=== PATIENT | female | born 1940 | race Caucasian/White ===

== ENCOUNTER → 2020-08-11 08:34 | Outpatient (CLI) | payer MEDICARE, SELFPAY ==
--- NOTE | ~2020-08-11 | US_ITS ---
US abdomen complete EXAMINATION: US Abdomen Complete INDICATION: Abdominal distention PROCEDURE: Realtime High Resolution abdomen ultrasound. COMPARISON: No prior studies for comparison FINDINGS: Gallbladder within normal limits. No gallstones, pericholecystic fluid, gallbladder wall t hickening or biliary dilatation. Common bile duct measures 5 mm. Liver echotexture within normal limits without focal mass. Pancreas within normal limits. Pancreati c tail is obscured by bowel gas. There are calcified granulomas of the spleen. There are right renal cysts measuring up to 1.9 cm. No solid masses or hydronephrosis. Right kidney measures 10.6 cm. Left kidney measures 8.2 cm. Visualized aspects of the aorta and IVC are within normal limits. Portal vein is patent. No sonograph ic Nelson's sign indicated by the technologist. IMPRESSION: 1: Unremarkable abdominal ultrasound. Reviewed, dictated and finalized at location A. AT CONTROL
== END ==
PROVIDERS: Visit Provider Internal Medicine Gastroenterology
DX: R14.0 Abdominal distension (gaseous) (principal); N28.1 Cyst of kidney, acquired
CPT/HCPCS: 76700

== ENCOUNTER 2020-08-18 00:54 | Outpatient (CLI) | payer MEDICARE, SELFPAY ==
[2020-08-19 17:16] LABS: SARS-CoV-2 RNA PCR Negative
== END 2020-08-18 00:55 | disposition home or self-care (01) ==
LOC: ANHCOVIDDT 00:54
PROVIDERS: Visit Provider Internal Medicine Gastroenterology
DX: Z01.812 Encounter for preprocedural laboratory examination (principal); Z20.822 Contact with and (suspected) exposure to COVID-19
CPT/HCPCS: C9803; U0003; U0005

== ENCOUNTER 2020-08-21 01:13 | Day surgery (SDC) | payer MEDICARE, SELFPAY ==
[2020-08-08 15:34] VITALS: BMI 23.1
[2020-08-21 08:00] VITALS: BP 151/83; PULSE 56; RESP 16; TEMP 35.8; O2SAT 99; BMI 21.3
--- NOTE | 2020-08-21 08:03 | WPDANESEPPF ---
Anes - Initial Pre Proc Eval Procedure: Operation Date: 08/21/20 09:00 Proposed Procedures p Colonoscopy - Keyon Scott MD Date/Time: 08/21/20 08:03 Surgeon: Keyon Scott MD Pre Op Diagnosis: Wt.Loss,Change in Bowel Habits, Abdominal Distenti Patient Data Age: 80 Gender: F Height: 1.68 m Weight: 60 kg Last Vital Signs Temp 35.8 C L 08/21/20 08:00 Pulse 56 L 08/21/20 08:00 Resp 16 08/21/20 08:00 BP 151/83 H 08/21/20 08:00 Pulse Ox 99 08/21/20 08:00 Allergies Allergy/AdvReac Type Severity Reaction Status Date / Time Penicillins Allergy Intermediate Rash Verified 08/21/20 07:56 Home Medications Medication Instructions Recorded Confirmed Type alendronate 70 mg tablet 70 mg PO WEEKLY 03/26/20 08/08/20 History apixaban 5 mg tablet 5 mg PO BID 03/26/20 08/21/20 History carvedilol 6.25 mg tablet 6.25 mg PO Q12H 03/26/20 08/21/20 History losartan 25 mg tablet 25 mg PO QPM 03/26/20 08/21/20 History pravastatin 40 mg tablet 40 mg PO HS 03/26/20 08/21/20 History trazodone 50 mg tablet 75 mg PO HS tablet 07/12/20 08/21/20 History famotidine [Pepcid] 20 mg PO QACLUNCH 08/08/20 08/21/20 History prednisone 5 mg PO Q48H 08/08/20 08/21/20 History Patient hx anesthesia problems: none Family hx anesthesia problems: none PMFSH Past Medical History Medical History (Updated 08/21/20 @ 08:05 by Reilly Huynh MD) Anxiety Atrial fibrillation Sinclair esophagus Bloating Bowel habit changes Colon cancer Colon cancer screening Depression GERD (gastroesophageal reflux disease) Hemorrhoid Hypercholesterolemia Hypertension Osteoarthritis Spinal stenosis Weight loss Family History Family History Grandparent Diabetes mellitus Father Patient's father is Sibling Family history of malignant neoplasm Mother Family history of Alzheimer's disease Social History Social History (Reviewed 04/05/20 @ 09:11 by June Smith Smoking status: Never smoker Substance use: never Substance use type: does not use Living arrangements: alone Spiritual care concerns: No Anes - Eval Final PreProcedure Day of Procedure 08/21/20 08:03 Patient weight: normal Heart: regular rate and rhythm Lungs: clear to auscultation and normal air movement Airway: Mallampati scale class II Neurological: alert and oriented Last oral intake: >/= 8 hours ASA classification: III Emergent: no Anesthetic plan: proceed Anesthesia type and monitoring: general GIVS Informed Consent: The patient's anesthetic plan and its attendant risks and benefits were discussed with the patient/family/POA. Questions were solicited and answers provided to the satisfaction of the patient/family/POA.
[2020-08-21] MEDS: LACTATED RINGERS 1,000 ML 150 ML IV CONT (08:23)
--- NOTE | 2020-08-21 09:15 | PM.HPGS ---
History of Present Illness History of Present Illness Consent: Risks, benefits, and alternatives have been discussed and questions answered. Patient agrees to proceed with procedure. Chief complaint: Wt.Loss,Change in Bowel Habits, Abdominal Distenti Narrative: Cris Conde is a 80 year old female with change bowel habit and bloating, last colonoscopy 4 years ago. Review of Systems Constitutional: Constitutional: Denies headache(s) and Denies weakness Eyes: Eyes: Denies blurry vision ENT: Reports Normal hearing present, Denies headache(s) and Denies neck pain Cardiovascular: Cardiovascular: Denies chest pain and Denies dyspnea Respiratory: Respiratory: Denies dyspnea Gastrointestinal: Gastrointestinal: Reports no additional gastrointestinal complaints Genitourinary: Genitourinary: Denies dysuria Musculoskeletal: Musculoskeletal: Denies neck pain Integumentary/Breasts: Skin/Breast: Denies dry skin Neurologic: Reports Normal hearing present, Denies headache(s) and Denies weakness Psychiatric: Psychiatric: Denies anxiety Endocrine: Endocrine: Denies change in body appearance Hematologic/Lymphatic: Hematologic/Lymphatic: Denies easy bleeding Allergic/Immunologic: Allergic/Immunologic: Denies urticaria PMFSH Past Medical History Medical History (Updated 08/21/20 @ 08:05 by Reilly Huynh MD) Anxiety Atrial fibrillation Sinclair esophagus Bloating Bowel habit changes Colon cancer Colon cancer screening Depression GERD (gastroesophageal reflux disease) Hemorrhoid Hypercholesterolemia Hypertension Osteoarthritis Spinal stenosis Weight loss Family History Family History Grandparent Diabetes mellitus Father Patient's father is Sibling Family history of malignant neoplasm Mother Family history of Alzheimer's disease Social History Social History Smoking status: Never smoker Substance use: never Substance use type: does not use Living arrangements: alone Spiritual care concerns: No Meds Home Medications and Allergies Home Medications Medication Instructions Recorded Confirmed Type alendronate 70 mg tablet 70 mg PO WEEKLY 03/26/20 08/08/20 History apixaban 5 mg tablet 5 mg PO BID 03/26/20 08/21/20 History carvedilol 6.25 mg tablet 6.25 mg PO Q12H 03/26/20 08/21/20 History losartan 25 mg tablet 25 mg PO QPM 03/26/20 08/21/20 History pravastatin 40 mg tablet 40 mg PO HS 03/26/20 08/21/20 History trazodone 50 mg tablet 75 mg PO HS tablet 07/12/20 08/21/20 History famotidine [Pepcid] 20 mg PO QACLUNCH 08/08/20 08/21/20 History prednisone 5 mg PO Q48H 08/08/20 08/21/20 History Allergies Allergy/AdvReac Type Severity Reaction Status Date / Time Penicillins Allergy Intermediate Rash Verified 08/21/20 07:56 Vital Signs Vital Signs - 24 hr 08/21/20 08:00 Temperature 96.5 F L Pulse Rate 56 L Respiratory Rate 16 Blood Pressure 151/83 H Pulse Oximetry 99 Exam Const: General: comfortable and no acute distress HENMT: General nose exam: Normal nares present Eyes: General: appearance normal, both eyes and all related structures Neck: Neck: no JVD Resp: Auscultation: clear to auscultation bilaterally Cardio: Rate: regular rate Rhythm: regular rhythm GI: Inspection: non-distended GI Palp: Yes Soft to palpation Skin: General skin exam: normal color Neuro: General: gait normal Speech: normal speech Extrem: General: normal to inspection Psych: Mental Status: mental status grossly normal Assessment and Plan Assessment and plan (1) Bowel habit changes: Code(s): R19.4 - Change in bowel habit Status: Acute (2) Colon cancer screening: Code(s): Z12.11 - Encounter for screening for malignant neoplasm of colon Status: Acute
[2020-08-21 09:36] VITALS: BP 91/42; PULSE 74; RESP 26; O2SAT 98
[2020-08-21 09:46] VITALS: BP 107/53; PULSE 80; RESP 25; O2SAT 99
[2020-08-21 09:56] VITALS: BP 130/61; PULSE 77; RESP 20; O2SAT 99
== END 2020-08-21 10:27 | disposition home or self-care (01) ==
PROVIDERS: PCP Nurse Practitioner Adult Health; Visit Provider Internal Medicine Gastroenterology
PROC: 0DJD8ZZ Inspection of Lower Intestinal Tract, Via Natural or Artificial Opening Endoscopic (ICD-10-PCS; CPT 45378; principal; 2020-08-21 09:00)
DX: R19.4 Change in bowel habit (principal); R14.0 Abdominal distension (gaseous); K57.30 Diverticulosis of large intestine without perforation or abscess without bleeding; K64.8 Other hemorrhoids; Z98.0 Intestinal bypass and anastomosis status; Z90.49 Acquired absence of other specified parts of digestive tract; Z85.038 Personal history of other malignant neoplasm of large intestine; I48.91 Unspecified atrial fibrillation; F41.8 Other specified anxiety disorders; K21.9 Gastro-esophageal reflux disease without esophagitis; E78.00 Pure hypercholesterolemia, unspecified; I10 Essential (primary) hypertension; Z79.01 Long term (current) use of anticoagulants
CPT/HCPCS: 45378; C9803; J2704; J7120; U0003; U0005

== ENCOUNTER → 2020-10-16 02:49 | Outpatient (CLI) | payer MEDICARE, SELFPAY ==
[2020-10-16 18:08] LABS: SARS-CoV-2 RNA PCR Negative
== END ==
PROVIDERS: PCP Nurse Practitioner Adult Health; Visit Provider Internal Medicine Gastroenterology
DX: Z01.812 Encounter for preprocedural laboratory examination (principal); Z20.822 Contact with and (suspected) exposure to COVID-19
CPT/HCPCS: C9803; U0003; U0005

== ENCOUNTER 2020-10-19 00:56 | Day surgery (SDC) | payer MEDICARE, SELFPAY ==
[2020-10-05 11:04] VITALS: BMI 23.4
[2020-10-19 06:32] VITALS: BP 135/81; PULSE 48; RESP 16; TEMP 36.3; O2SAT 99; BMI 22.8
[2020-10-19] MEDS: LACTATED RINGERS 1,000 ML 150 ML IV CONT (06:35)
--- NOTE | 2020-10-19 07:18 | WPDANESEPPF ---
Anes - Initial Pre Proc Eval Procedure: Operation Date: 10/19/20 07:30 Proposed Procedures p Esophagogastroduodenoscopy - Keyon Scott MD Date/Time: 10/19/20 07:18 Surgeon: Keyon Scott MD Pre Op Diagnosis: GERD, Sinclair's Esophagus Patient Data Age: 80 Gender: F Height: 5 ft 5 in Weight: 62.2 kg Last Vital Signs Temp 97.3 F L 10/19/20 06:32 Pulse 48 L 10/19/20 06:32 Resp 16 10/19/20 06:32 BP 135/81 10/19/20 06:32 Pulse Ox 99 10/19/20 06:32 Allergies Allergy/AdvReac Type Severity Reaction Status Date / Time Penicillins Allergy Intermediate Rash Verified 10/19/20 06:31 Home Medications Medication Instructions Recorded Confirmed Type alendronate 70 mg tablet 70 mg PO WEEKLY 03/26/20 10/19/20 History apixaban 5 mg tablet 5 mg PO BID 03/26/20 10/19/20 History carvedilol 6.25 mg tablet 6.25 mg PO Q12H 03/26/20 10/19/20 History losartan 25 mg tablet 25 mg PO QPM 03/26/20 10/19/20 History pravastatin 40 mg tablet 40 mg PO HS 03/26/20 10/19/20 History trazodone 50 mg tablet 75 mg PO HS tablet 07/12/20 10/19/20 History famotidine [Pepcid] 20 mg PO QACLUNCH 08/08/20 10/19/20 History prednisone 5 mg PO Q48H 08/08/20 10/19/20 History Patient hx anesthesia problems: none Family hx anesthesia problems: none PMFSH Past Medical History Medical History (Updated 08/21/20 @ 08:05 by Reilly Huynh MD) Anxiety Atrial fibrillation Sinclair esophagus Bloating Bowel habit changes Colon cancer Colon cancer screening Depression GERD (gastroesophageal reflux disease) Hemorrhoid Hypercholesterolemia Hypertension Osteoarthritis Spinal stenosis Weight loss Family History Family History Grandparent Diabetes mellitus Father Patient's father is Sibling Family history of malignant neoplasm Mother Family history of Alzheimer's disease Social History Social History (Reviewed 09/10/20 @ 09:11 by June Smith Smoking status: Never smoker Alcohol intake: never Substance use: never Substance use type: does not use Living arrangements: with family Spiritual care concerns: No Anes - Eval Final PreProcedure Day of Procedure 10/19/20 07:18 Patient weight: normal Heart: regular rate and rhythm Lungs: clear to auscultation Airway: Mallampati scale class II Neurological: alert and oriented Last oral intake: >/= 8 hours ASA classification: III Emergent: no Anesthetic plan: proceed Anesthesia type and monitoring: general GIVS and standard monitoring Informed Consent: The patient's anesthetic plan and its attendant risks and benefits were discussed with the patient/family/POA. Questions were solicited and answers provided to the satisfaction of the patient/family/POA.
--- NOTE | 2020-10-19 07:27 | PM.HPGS ---
History of Present Illness History of Present Illness Consent: Risks, benefits, and alternatives have been discussed and questions answered. Patient agrees to proceed with procedure. Chief complaint: GERD, Sinclair's Esophagus Narrative: Cris Conde is a 80 year old female with history of Sinclair's, doing well and not longer using ppi Review of Systems Constitutional: Constitutional: Denies headache(s) and Denies weakness Eyes: Eyes: Denies blurry vision ENT: Reports Normal hearing present, Denies headache(s) and Denies neck pain Cardiovascular: Cardiovascular: Denies chest pain and Denies dyspnea Respiratory: Respiratory: Denies dyspnea Gastrointestinal: Gastrointestinal: Reports no additional gastrointestinal complaints Genitourinary: Genitourinary: Denies dysuria Musculoskeletal: Musculoskeletal: Denies neck pain Integumentary/Breasts: Skin/Breast: Denies dry skin Neurologic: Reports Normal hearing present, Denies headache(s) and Denies weakness Psychiatric: Psychiatric: Denies anxiety Endocrine: Endocrine: Denies change in body appearance Hematologic/Lymphatic: Hematologic/Lymphatic: Denies easy bleeding Allergic/Immunologic: Allergic/Immunologic: Denies urticaria PMF Past Medical History Medical History (Updated 08/21/20 @ 08:05 by Reilly Huynh MD) Anxiety Atrial fibrillation Sinclair esophagus Bloating Bowel habit changes Colon cancer Colon cancer screening Depression GERD (gastroesophageal reflux disease) Hemorrhoid Hypercholesterolemia Hypertension Osteoarthritis Spinal stenosis Weight loss Family History Family History Grandparent Diabetes mellitus Father Patient's father is Sibling Family history of malignant neoplasm Mother Family history of Alzheimer's disease Social History Social History Smoking status: Never smoker Alcohol intake: never Substance use: never Substance use type: does not use Living arrangements: with family Spiritual care concerns: No Meds Home Medications and Allergies Home Medications Medication Instructions Recorded Confirmed Type alendronate 70 mg tablet 70 mg PO WEEKLY 03/26/20 10/19/20 History apixaban 5 mg tablet 5 mg PO BID 03/26/20 10/19/20 History carvedilol 6.25 mg tablet 6.25 mg PO Q12H 03/26/20 10/19/20 History losartan 25 mg tablet 25 mg PO QPM 03/26/20 10/19/20 History pravastatin 40 mg tablet 40 mg PO HS 03/26/20 10/19/20 History trazodone 50 mg tablet 75 mg PO HS tablet 07/12/20 10/19/20 History famotidine [Pepcid] 20 mg PO QACLUNCH 08/08/20 10/19/20 History prednisone 5 mg PO Q48H 08/08/20 10/19/20 History Allergies Allergy/AdvReac Type Severity Reaction Status Date / Time Penicillins Allergy Intermediate Rash Verified 10/19/20 06:31 Vital Signs Vital Signs - 24 hr 10/19/20 06:32 Temperature 97.3 F L Pulse Rate 48 L Respiratory Rate 16 Blood Pressure 135/81 Pulse Oximetry 99 Exam Const: General: comfortable and no acute distress HENMT: General nose exam: Normal nares present Eyes: General: appearance normal, both eyes and all related structures Neck: Neck: no JVD Resp: Auscultation: clear to auscultation bilaterally Cardio: Rate: regular rate Rhythm: regular rhythm GI: Inspection: non-distended GI Palp: Yes Soft to palpation Skin: General skin exam: normal color Neuro: General: gait normal Speech: normal speech Extrem: General: normal to inspection Psych: Mental Status: mental status grossly normal Assessment and Plan Assessment and plan (1) GERD (gastroesophageal reflux disease): Code(s): K21.9 - Gastro-esophageal reflux disease without esophagitis Status: Acute (2) 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
[2020-10-19] MEDS: BENZOCAINE (*SP) 60 ML SPRAY CAN (HURRICAINE) 1 SPRAY MUCOUS MEM (07:33)
[2020-10-19 07:43] VITALS: BP 111/54; PULSE 66; RESP 26; O2SAT 98
[2020-10-19 07:53] VITALS: BP 132/71; PULSE 65; RESP 16; O2SAT 100
[2020-10-19 08:03] VITALS: BP 140/63; PULSE 69; RESP 24; O2SAT 100
== END 2020-10-19 08:13 | disposition home or self-care (01) ==
PROVIDERS: PCP Nurse Practitioner Adult Health; Visit Provider Internal Medicine Gastroenterology
PROC: 0DJ08ZZ Inspection of Upper Intestinal Tract, Via Natural or Artificial Opening Endoscopic (ICD-10-PCS; CPT 43235; principal; 2020-10-19 07:30)
DX: Z09 Encounter for follow-up examination after completed treatment for conditions other than malignant neoplasm (principal); K21.00 Gastro-esophageal reflux disease with esophagitis, without bleeding; K29.50 Unspecified chronic gastritis without bleeding; K44.9 Diaphragmatic hernia without obstruction or gangrene; Z87.19 Personal history of other diseases of the digestive system; I48.91 Unspecified atrial fibrillation; F41.8 Other specified anxiety disorders; I10 Essential (primary) hypertension; E78.00 Pure hypercholesterolemia, unspecified; Z79.01 Long term (current) use of anticoagulants
CPT/HCPCS: 43239; 88305; C9803; J2704; J7120; U0003; U0005

== ENCOUNTER 2021-04-26 07:58 | Outpatient (CLI) | payer MEDICARE, SELFPAY ==
--- NOTE | 2021-05-09 15:24 | WPDSLEEPSTUD ---
Sleep Study Date of Study: 04/26/21 <Yuko Encinas, DO - Last Filed: 05/09/21 16:59> Ordering Provider: Cally Denny, [employer] <Yuko Encinas, - Last Filed: 05/09/21 16:59> Interpreting Physician: Yuko Encinas DO <Yuko Encinas, - Last Filed: 05/09/21 16:59> Sleep Study Type: Polysomnogram <Yuko Encinas - Last Filed: 05/09/21 16:59> Height: 1.65 m <Yuko Encinas - Last Filed: 05/09/21 16:59> Weight: 62.596 kg <Yuko Encinas - Last Filed: 05/09/21 16:59> Body Mass Index: 22.9 <Yuko Encinas - Last Filed: 05/09/21 16:59> Neck Circumference (inches): 13 <Yuko Encinas - Last Filed: 05/09/21 16:59> Burdette: 1 <Yuko Encinas - Last Filed: 05/09/21 16:59> Reason for Sleep Study The patient states she has difficulty falling asleep and maintaining sleep. <Yuko Encinas - Last Filed: 05/09/21 16:59> Sleep History The patient is an 80-year-old female when hypertension, atrial fibrillation, myasthenia gravis and anxiety that had a sleep study ordered by her primary care for difficulty sleeping. The patient denies waking from sleep short of breath. She denies awakening with heartburn, belching or cough. She denies snoring loudly to where others complain. She denies having difficulty falling asleep. She denies waking up gasping for breath throughout the night. She denies her heart pounding or beating regularly during the night. She denies falling asleep during the day or while driving. The patient denies sleep paralysis, cataplexy and hypnagogic / hypnopompic hallucinations. The patient is currently retired. The patient denies having nightmares. She often feels sad depressed and anxious. She rarely notices parts of her body jerking. She denies kicking throughout the night. She denies crawling and aching feelings in the legs. Patient denies leg pain throughout the night. She denies grinding her teeth during sleep waking up with jaw pain. She denies being bothered by pain during the day and being awakened by pain throughout the night. She denies waking up feeling stiff in the morning with sore and achy muscles. The patient is to bed at 9:30 p.m. on both weekdays and weekends. It takes her an hour to fall asleep. She wakes up 2 times throughout the night due to unknown reasons. When she wakes up she rolls over and tries not position. When she wakes up and takes her 2-3 hours to fall back asleep. She usually wakes up around 3-4 a.m. on both weekdays and weekends. She typically gets 4 hours of sleep per night. The patient is not currently living with. She does not drink any caffeinated beverages 2 hours prior to going to bed. She does not engage in physical office as before bedtime. She will read and watch television before falling asleep. She does not take any naps in the afternoon or the evening. She denies tobacco, caffeine, alcohol and recreational drug use. <Yuko Encinas DO - Last Filed: 05/09/21 16:59> [facility] Past Medical History Medical History: Medical History Abdominal gas pain Anxiety Atrial fibrillation Sinclair esophagus Bloating Bowel habit changes Colon cancer Colon cancer screening Depression GERD (gastroesophageal reflux disease) Hemorrhoid Hypercholesterolemia Hypertension IBS (irritable bowel syndrome) Osteoarthritis Spinal stenosis Weight loss <Yuko Encinas DO - Last Filed: 05/09/21 16:59> Family History Family History: Family History Grandparent Diabetes mellitus Father Patient's father is Sibling Family history of malignant neoplasm Mother Family history of Alzheimer's disease <Yuko Encinas DO - Last Filed: 05/09/21 16:59> Social History Social History:
[2021-05-09 16:04] VITALS: BMI 22.9
== END 2021-04-27 07:32 | disposition home or self-care (01) ==
PROVIDERS: PCP Nurse Practitioner Adult Health; Visit Provider Nurse Practitioner Adult Health
DX: G47.09 Other insomnia (principal); G47.33 Obstructive sleep apnea (adult) (pediatric)
CPT/HCPCS: 95810

== ENCOUNTER 2022-05-15 09:54 | Outpatient (CLI) | payer MEDICARE, SELFPAY ==
[2022-05-15 10:09] LABS: Basophils Absolute Auto 0.1 K/mm3 (0.0-0.1); Basophils Percent Auto 1.1 % (0.2-1.2); Eosinophils Absolute Auto 0.1 K/mm3 (0-0.3); Eosinophils Percent Auto 1.7 % (0-4.4); Hematocrit 35.2 % (37.0-47.0); Hemoglobin 11.5 g/dL (12.0-15.0); Immature Granulocyte Absolute 0.02 K/mm3 (0.00-0.031); Immature Granulocyte Percent A 0.4 % (0-0.5); Lymphocytes Absolute Auto 1.17 K/mm3 (0.9-3.2); Mean Corpuscular HGB Conc 32.7 g/dl (32-36); Mean Corpuscular Hemoglobin 31.5 pg (26-34); Mean Corpuscular Volume 96.4 fl (80-100); Mean Platelet Volume 9.3 fl (7.4-10.4); Monocytes Absolute Auto 0.6 K/mm3 (0.1-0.6); Monocytes Percent Auto 11.3 % (2.6-8.5); Neutrophils Absolute Auto 3.4 K/mm3 (1.3-6.7); Neutrophils Percent Auto 63.5 % (45.5-73.1); Platelet Count Result 232 k/mm3 (150-375); Red Blood Count 3.65 M/mm3 (4.2-5.4); Red Cell Distribution Width 12.7 % (11.5-14.5); White Blood Count 5.3 K/mm3 (4.5-10.0)
[2022-05-15 10:13] LABS: Blood Urea Nitrogen 27 mg/dL (8-26); Carbon Dioxide 29 mmol/L (22-30); Chloride 100 mmol/L (98-109); Estimated Glomerular Filt Rate 31; Glucose 88 mg/dL (70-105); Ionized Calcium (POC) 1.28 mmol/L (1.11-1.31); Potassium 4.5 mmol/L (3.5-4.9); Sodium 137 mmol/L (138-146)
[2022-05-15 11:43] LABS: Vitamin B12 > 1000.0 pg/mL (239-931)
[2022-05-19 14:42] LABS: Methylmalonic Acid 280 nmol/L (87-318)
== END 2022-05-15 09:55 | disposition home or self-care (01) ==
LOC: ANHLAB 09:55
PROVIDERS: PCP Nurse Practitioner Adult Health; Visit Provider Internal Medicine Hematology & Oncology
DX: D64.9 Anemia, unspecified (principal)
CPT/HCPCS: 36415; 80047; 82607; 83921; 85025

== ENCOUNTER 2022-09-18 09:29 | Outpatient (CLI) | payer MEDICARE, SELFPAY ==
[2022-09-18 09:45] LABS: Basophils Absolute Auto 0.1 K/mm3 (0.0-0.1); Basophils Percent Auto 0.9 % (0.2-1.2); Hemoglobin 11.4 g/dL (12.0-15.0); Immature Granulocyte Absolute 0.01 K/mm3 (0.00-0.031); Immature Granulocyte Percent A 0.2 % (0-0.5); Lymphocytes Absolute Auto 1.13 K/mm3 (0.9-3.2); Lymphocytes Percent Auto 20.4 % (18.3-44.2); Mean Corpuscular HGB Conc 32.6 g/dl (32-36); Mean Corpuscular Hemoglobin 31.1 pg (26-34); Mean Corpuscular Volume 95.4 fl (80-100); Mean Platelet Volume 9.3 fl (7.4-10.4); Monocytes Absolute Auto 0.6 K/mm3 (0.1-0.6); Monocytes Percent Auto 11.2 % (2.6-8.5); Neutrophils Absolute Auto 3.7 K/mm3 (1.3-6.7); Neutrophils Percent Auto 67.3 % (45.5-73.1); Platelet Count Result 230 k/mm3 (150-375); Red Blood Count 3.67 M/mm3 (4.2-5.4); Red Cell Distribution Width 12.9 % (11.5-14.5); White Blood Count 5.5 K/mm3 (4.5-10.0)
[2022-09-18 09:54] LABS: Blood Urea Nitrogen 29 mg/dL (8-26); Carbon Dioxide 28 mmol/L (22-30); Chloride 98 mmol/L (98-109); Estimated Glomerular Filt Rate 27; Glucose 99 mg/dL (70-105); Ionized Calcium (POC) 1.36 mmol/L (1.11-1.31); Potassium 4.3 mmol/L (3.5-4.9); Sodium 134 mmol/L (138-146)
[2022-09-18 13:06] LABS: Vitamin B12 > 1000.0 pg/mL (239-931)
== END 2022-09-18 09:30 | disposition home or self-care (01) ==
LOC: ANHLAB 09:30
PROVIDERS: PCP Nurse Practitioner Adult Health; Visit Provider Internal Medicine Hematology & Oncology
DX: D64.9 Anemia, unspecified (principal)
CPT/HCPCS: 36415; 80047; 82607; 85025

== ENCOUNTER 2023-03-18 09:36 | Outpatient (CLI) | payer MEDICARE, SELFPAY ==
[2023-03-18 09:56] LABS: Basophils Absolute Auto 0.1 K/mm3 (0.0-0.1); Basophils Percent Auto 0.9 % (0.2-1.2); Hematocrit 36.9 % (37.0-47.0); Hemoglobin 12.2 g/dL (12.0-15.0); Immature Granulocyte Absolute 0.02 K/mm3 (0.00-0.031); Immature Granulocyte Percent A 0.4 % (0-0.5); Lymphocytes Absolute Auto 1.13 K/mm3 (0.9-3.2); Lymphocytes Percent Auto 20.4 % (18.3-44.2); Mean Corpuscular HGB Conc 33.1 g/dl (32-36); Mean Corpuscular Hemoglobin 30.8 pg (26-34); Mean Corpuscular Volume 93.2 fl (80-100); Mean Platelet Volume 9.3 fl (7.4-10.4); Monocytes Absolute Auto 0.5 K/mm3 (0.1-0.6); Monocytes Percent Auto 8.8 % (2.6-8.5); Neutrophils Absolute Auto 3.9 K/mm3 (1.3-6.7); Neutrophils Percent Auto 69.5 % (45.5-73.1); Platelet Count Result 197 k/mm3 (150-375); Red Blood Count 3.96 M/mm3 (4.2-5.4); Red Cell Distribution Width 12.9 % (11.5-14.5); White Blood Count 5.5 K/mm3 (4.5-10.0)
[2023-03-18 09:59] LABS: Blood Urea Nitrogen 27 mg/dL (8-26); Carbon Dioxide 22 mmol/L (22-30); Chloride 103 mmol/L (98-109); Estimated Glomerular Filt Rate 29; Glucose 104 mg/dL (70-105); Ionized Calcium (POC) 1.12 mmol/L (1.11-1.31); Potassium 4.6 mmol/L (3.5-4.9); Sodium 136 mmol/L (138-146)
== END 2023-03-18 09:37 | disposition home or self-care (01) ==
LOC: ANHLAB 09:41
PROVIDERS: PCP Nurse Practitioner Adult Health; Visit Provider Internal Medicine Hematology & Oncology
DX: D64.9 Anemia, unspecified (principal)
CPT/HCPCS: 36415; 80047; 85025